=== PATIENT | male | born 1990 | race Two or more races ===

== ENCOUNTER 2017-01-12 08:31 | Emergency (ER) | payer SELFPAY ==
[2017-01-12 08:37] VITALS: BP 121/77; PULSE 87; TEMP 97; O2SAT 100; BMI 26.6
[2017-01-12 08:56] VITALS: RESP 16
== END 2017-01-12 09:15 | disposition left against medical advice (07) ==
LOC: H.ER 08:31
DX: Z02.89 Encounter for other administrative examinations (principal)